=== PATIENT | female | born 1990 | race Caucasian/White ===

== ENCOUNTER 2017-12-05 12:51 | Emergency (ER) | END 2017-12-05 17:44 | disposition home or self-care (01) ==

== ENCOUNTER 2018-01-08 10:11 | Emergency (ER) | END 2018-01-08 10:58 | disposition left against medical advice (07) ==

== ENCOUNTER → 2018-01-08 | Outpatient (CLI) | END | disposition home or self-care (01) ==

== ENCOUNTER 2018-05-05 11:14 | Outpatient (CLI) | payer MEDICAID ==
[~2018-05-05] VITALS: Ht 162.6 cm; Wt 68.7 kg
[~2018-05-05 11:14] MED LIST: ONDA4TAB13 PO
[2018-05-05] MEDS ORDERED: PNV11TAB PO (11:50)
[2018-05-05] MEDS ORDERED: FOLI0.4T2 PO (11:50)
[2018-05-05 11:51] VITALS: BP 110/59; PULSE 93; RESP 18; Ht 162.6 cm; Wt 68.7 kg
--- NOTE | 2018-05-05 13:32 | PN ---
Triage Information Date/Time 05/13/2018 Reason for visit: Patient is here for blurred vision and dizziness for a few hours, patient was sent in from clinic for evaluation Weeks of Gestation 34+ weeks /Para 3 para 2 Diabetes: none Hypertention: none Additional information Patient was complicated by twin with a demise of 1 of the twins at 17 weeks of gestation Objective Vital Signs Date Temp Pulse Resp B/P (MAP) Pulse Ox O2 O2 Flow FiO2 Time Delivery Rate 05/05/18 98.4 93 18 110/59 11:51 (76) Heart Rate: 140's Heart Rate Comments Reactive Contractions: None Exam Deferred and patient did not have any contractions Results/Medications Result Diagram: 05/05/18 1158 05/05/18 1158 Results 24 hrs Laboratory Tests Test 05/05/18 08:05 05/05/18 11:58 Urine Color [place]WRENCE Urine Clarity CLOUDY A Urine pH 7.0 Urine Specific [place] 1.021 Urine Ketones NEGATIVE Urine Nitrite NEGATIVE Urine Bilirubin NEGATIVE Urine Urobilinogen 1+ H Urine Leukocyte Esterase NEGATIVE Urine Microscopic RBC 10 H Urine Microscopic WBC 7 H Urine Squamous Epithelial Cells FEW Urine Bacteria FEW A Urine Mucus MANY A Urine Hemoglobin NEGATIVE Urine Glucose NEGATIVE Urine Total Protein 2+ H White Blood Count 6.3 Red Blood Count 4.04 L Hemoglobin 11.8 L Hematocrit 35.6 L Mean Corpuscular Volume 88.1 Mean Corpuscular Hemoglobin 29.2 Mean Corpuscular Hemoglobin Concent 33.1 Red Cell Distribution Width 14.9 H Platelet Count 198 Mean Platelet Volume 9.0 Immature Granulocytes % 0.600 H Neutrophils % 71.9 Lymphocytes % 17.0 Monocytes % 8.4 Eosinophils % 1.6 Basophils % 0.5 Nucleated Red Blood Cells % 0.0 Immature Granulocytes # 0.040 H Neutrophils # 4.6 Lymphocytes # 1.1 Monocytes # 0.5 Eosinophils # 0.1 Basophils # 0.0 Nucleated Red Blood Cells # 0.0 Prothrombin Time 12.8 Prothrombin Time Ratio 1.0 INR International Normalized Ratio 0.95 Activated Partial Thromboplast Time 24.7 Fibrinogen 468.0 H Sodium Level 137 Potassium Level 4.7 Chloride Level 105 Carbon Dioxide Level 25 Anion Gap 7 Blood Urea Nitrogen 7 Creatinine 0.59 Est Glomerular Filtrat Rate mL/min > 60 Glucose Level 69 L Uric Acid 4.1 Calcium Level 9.4 Total Bilirubin 0.0 L Direct Bilirubin 0.00 Indirect Bilirubin 0.0 Aspartate Amino Transf (AST/SGOT) 19 Alanine Aminotransferase (ALT/SGPT) 13 Alkaline Phosphatase 211 H Total Protein 6.9 Albumin 3.7 Globulin 3.20 Albumin/Globulin Ratio 1.15 Imaging Results Normal biophysical profile. Disposition: Discharge Assessment/Plan All labs and ultrasounds are normal Aside from symptoms patient is not complaining of any other problems We will follow patient as outpatient CLIVE SPEARS MD May 05, 2018 13:32
== END 2018-05-05 13:55 | disposition home or self-care (01) ==
LOC: L-D 11:14 → OBT 11:14
PROVIDERS: ATTEND Obstetrics & Gynecology
DX: O26.893 Other specified pregnancy related conditions, third trimester (principal); Z3A.34 34 weeks gestation of pregnancy; R42 Dizziness and giddiness; H53.8 Other visual disturbances
CPT/HCPCS: 76818; 80053; 81001; 84560; 85025; 85384; 85610; 85730; Z7500; G0463

== ENCOUNTER 2018-06-07 09:00 | Inpatient (IN) | payer MEDICAID ==
[~2018-06-07] VITALS: Ht 165.1 cm; Wt 71.3 kg
[~2018-06-07 09:00] MED LIST changes: +FOLI0.4T2 PO; +PNV11TAB PO
[2018-06-07 10:40] VITALS: Ht 165.1 cm; Wt 71.3 kg
[2018-06-07] MEDS ORDERED: METHYLERGONOVINE 0.2 MG INJ IM PRN (11:00)
[2018-06-07] MEDS ORDERED: OXYTOCIN 30 UNITS/LR 500 ML IV PRN (11:00)
[2018-06-07] MEDS ORDERED: MINERAL OIL LIGHT 10 ML VIAL TOP ONE (11:00)
[2018-06-07] MEDS ORDERED: LIDOCAINE 1% (MPF) 30 ML INJ INJ PRN (11:00)
[2018-06-07] MEDS ORDERED: IBUPROFEN 600 MG TAB PO PRN (11:00)
[2018-06-07] MEDS ORDERED: CARBOPROST 250 MCG INJ IM PRN (11:00)
[2018-06-07] MEDS ORDERED: MISOPROSTOL 200 MCG TAB PR PRN (11:00)
[2018-06-07] MEDS ORDERED: OXYTOCIN 30 UNITS/LR 500 ML IV SCH ×2 (11:00→19:00)
[2018-06-07] MEDS ORDERED: BUTORPHANOL 2 MG INJ IV PRN (11:00)
[2018-06-07] MEDS: LACTATED RINGER'S 1,000 ML IV SCH ×2 (12:06→16:05)
[2018-06-07] MEDS: MISOPROSTOL 50 MCG CAPSULE PO SCH ×3 (13:11→21:00)
--- NOTE | 2018-06-07 18:47 | HP ---
Date/Time of Note Date/Time of Note DATE: 06/07/18 TIME: 18:44 OB - History Hx of Present Free Text/Dictation 27-year-old female 3 para 2 at 39+ weeks admitted for induction of labor Patient had twin gestation in the beginning of demise of 1 of the twins at 17 weeks Was constantly being monitored by antepartum testing unit Estimated Due Date: Jun 12, 2018 : 3 Para: 2 Care: Good Care Ultrasounds: Normal mid trimester US Obstetrical Complications: Other (Twin with demise of first or second twin at 17 weeks) Medical Complications: None Past Family/Social History * Past Medical, Surgical, Family and Obstetric Histories reviewed from chart. Blood Type: A+ Rubella: immune RPR/VDRL: Negative GBS Status: Negative HBsAG: Negative OB Admission Exam Vital Signs Vital Signs See nurse's notes Physical Exam HEENT: WNL Heart: Rhythm Normal Lungs: Clear, Equal Abdomen: WNL Extremities: Normal Reflexes: Normal Cervical Dilatation: Fingertip Effacement: 0% Station: -3 Membranes: Intact Heart Rate: 140's Accelerations: Accelerations Present Decelerations: No Decelerations Varibility: Marked Contractions on Admission: None Last 72 hours Lab Results CBC & BMP 06/07/18 11:30 OB Assessment/Plan Reason for admission: induction of labor Other Assessment: Term gestation demise of his second twin at 17 weeks Other plan: Start induction using Cytotec CLIVE SPEARS MD Jun 07, 2018 18:47
[2018-06-08] MEDS: LACTATED RINGER'S 1,000 ML IV SCH ×2 (00:18→03:07)
[2018-06-08] MEDS: MISOPROSTOL 50 MCG CAPSULE PO SCH ×3 (01:00→09:00)
--- NOTE | 2018-06-08 02:56 | PREAC ---
Date/Time of Note Date/Time of Note DATE: 06/08/18 TIME: 02:55 Anesthesia Eval and Record Evaluation Time Pre-Procedure Interview DATE: 06/08/18 TIME: 02:55 Age 27 Sex female NPO: 8 hrs Preoperative diagnosis labor pain Planned procedure labor epidural Past Medical History Past Medical History: None Surgery & Anesthesia Issues No known issue Meds Anticoagulation: No Beta Rachael within 24 hr: No Reason Beta Rachael not given: Pt. not on B-Rachael Active Scripts Ondansetron Hcl* (Zofran*) 4 Mg Tab, 4 MG PO Q4H PRN for NAUSEA AND OR VOMITING, #15 TAB Prov:YOLANDA REDDGENESIS Greenberg 12/05/17 Reported Medications Folic Acid* (Folic Acid*) 0.4 Mg Tablet, 0.4 MG PO DAILY, TAB 05/05/18 [id number] ( 19) 1 Each Tablet, 1 TAB PO DAILY, TAB 05/05/18 Current Medications Lactated Ringer's 1,000 ml @ 125 mls/hr Q8H IV Last administered on 06/08/18at 00:18; Admin Dose 125 MLS/HR; Start 06/07/18 at 10:34 Butorphanol Tartrate (Stadol) 2 mg Q2H PRN IV .PAIN; Start 06/07/18 at 11:00 Lidocaine (Xylocaine 1% (Mpf)) 30 ml ONCE PRN INJ .EPISIOTOMY; Start 06/07/18 at 11:00 Oxytocin/Lactated Ringer's 500 ml @ 500 mls/hr ONCE POST IV ; Start 06/07/18 at 11:00 Oxytocin/Lactated Ringer's 500 ml @ 125 mls/hr POST IV ; Start 06/07/18 at 11:00 Ibuprofen (Motrin) 600 mg ONCE PRN PO .PAIN 1-5; Start 06/07/18 at 11:00 Oxytocin/Lactated Ringer's 500 ml @ 0 mls/hr ONCE PRN IV .VAGINAL BLEEDING; Start 06/07/18 at 11:00 Methylergonovine Maleate (Methergine) 0.2 mg ONCE PRN IM .VAGINAL BLEEDING; Start 06/07/18 at 11:00 Carboprost Tromethamine (Hemabate) 250 mcg ONCE PRN IM .VAGINAL BLEEDING; Start 06/07/18 at 11:00 Misoprostol (Cytotec) 1,000 mcg ONCE PRN LA .VAGINAL BLEEDING; Start 06/07/18 at 11:00 Misoprostol (Cytotec 50 Mcg Capsule) 50 mcg Q4 PO Last administered on 06/07/18at 13:11; Admin Dose 50 MCG; Start 06/07/18 at 13:00 Meds reviewed: Yes Allergies Coded Allergies: No Known Allergy (Unverified , 12/05/17) Allergies Reviewed: Yes Labs/Studies Labs Reviewed: Reviewed by anesthesiologist Result Diagram: 06/07/18 1130 Laboratory Tests 06/07/18 11:30 Blood Bank Test 06/07/18 11:30 Antibody Screen NEGATIVE Blood Type A POSITIVE Rh Immune Globulin Candidate NO test: Positive Pre-procedure Exam Airway: Adequate mouth opening, Adequate thyromental dist Mallampati: Mallampati III Teeth: Normal Lung: Normal Heart: Normal ASA Physical Status ASA physical status: 2 Emergency: None Planned Anesthetic Neuraxial: Epidural Planned Pain Management Epidural, Parenteral pain med, Other neuraxial med Pre-operative Attestations Prior to commencing anesthesia and surgery, the patient was re-evaluated, there was verification of: *The patient's identity *The results of appropriate recent lab work and preoperative vital signs *The above evaluation not changing prior to induction *Anesthetic plan, risk benefits, alternative and complications discussed with patient/family; questions answered; patient/family understands, accepts and wishes to proceed. MINOR HOWARD MD Jun 08, 2018 02:56
[2018-06-08] MEDS ORDERED: FENTAnyl 2MCG/ML-ROPIV 0.2% 100 ML BAG EPI SCH (03:00)
[2018-06-08] MEDS ORDERED: ZOLPIDEM 5 MG TAB PO PRN ×2 (03:00→11:30)
[2018-06-08] MEDS ORDERED: ONDANSETRON 4 MG INJ IV PRN (03:00)
[2018-06-08] MEDS ORDERED: KETOROLAC 30 MG INJ IV PRN (03:00)
[2018-06-08] MEDS ORDERED: NALOXONE (0.4 MG/ML) INJ IV PRN (03:00)
[2018-06-08] MEDS ORDERED: HYDROmorphONE 0.5 MG/0.5 ML SYG IV PRN ×2 (03:00)
[2018-06-08] MEDS ORDERED: DIPHENHYDRAMINE 50 MG INJ IV PRN (03:00)
[2018-06-08] MEDS: OXYTOCIN 30 UNITS/LR 500 ML IV SCH ×2 (07:40→07:49)
[2018-06-08] MEDS ORDERED: KETOROLAC 30 MG INJ IV STA (07:44)
--- NOTE | 2018-06-08 07:44 | LDN ---
Date/Time of Note Date/Time of Note DATE: 06/08/18 TIME: 07:42 Delivery Summary Normal spontaneous vaginal delivery of a viable over intact perineum Weeks of Gestation 39 weeks plus Placenta Delivered: Spontaneously, Intact & Complete Meconium: none Episiotomy: No Perineal laceration: 1 Laceration repair: First-degree perineal laceration was repaired in layers using 2-0 Vicryl on a CT1 needle on per layers and 2-0 chromic on a small half needle and superficial layer Anesthesia type: Epidural Estimated blood loss: 200 Sponge & Needle done & correct: Yes All needle counts correct: Yes Any foreign bodies felt in the: No Infant Delivery Information Sex Infant Sex: male Apgars 1 Minute: 8 5 Minute: 9 Suctioning Nose & mouth suctioned at shawn: Yes Delee suction performed: No Umbilical Cord Umbilical cord with: 3 Vessels Cord presentations: no nuchal cord Cord Blood was obtained: Yes Mother & Baby Disposition Disposition Mom & Baby to Maternity; Good: Yes (Mother and baby were recovered in good condition) Mom transferred to: Other (Maternity) Baby to NICU: No CLIVE SPEARS MD Jun 08, 2018 07:44
[2018-06-08 11:05] VITALS: BP 101/56; PULSE 82; RESP 18
[2018-06-08] MEDS ORDERED: MISOPROSTOL 200 MCG TAB PR PRN (11:30)
[2018-06-08] MEDS ORDERED: DIBUCAINE 1% 30 GM OINT TOP PRN (11:30)
[2018-06-08] MEDS ORDERED: BENZOCAINE 20% 56 ML SPRAY TOP PRN (11:30)
[2018-06-08] MEDS ORDERED: WITCH HAZEL/GLYCERIN PAD PR PRN (11:30)
[2018-06-08] MEDS ORDERED: HYDROCODONE/APAP (5/325) TAB PO PRN ×2 (11:30)
[2018-06-08] MEDS ORDERED: LANOLIN HPA 1 PKT TOP PRN (11:30)
[2018-06-08] MEDS ORDERED: OXYTOCIN 30 UNITS/LR 500 ML IV PRN (11:30)
[2018-06-08] MEDS ORDERED: CARBOPROST 250 MCG INJ IM PRN (11:30)
[2018-06-08] MEDS ORDERED: METHYLERGONOVINE 0.2 MG INJ IM PRN (11:30)
[2018-06-08] MEDS: IBUPROFEN 600 MG TAB PO SCH ×2 (11:48→18:21)
[2018-06-08] MEDS: LACTATED RINGER'S 1,000 ML IV* SCH ×2 (13:00→13:01)
[2018-06-08 15:00] VITALS: BP 101/57; PULSE 84; RESP 20
[2018-06-08] MEDS: CEPHALEXIN 500 MG CAP PO SCH (18:21)
[2018-06-08 20:00] VITALS: BP 101/56; PULSE 70; RESP 18
[2018-06-08] MEDS: SENNA/DOCUSATE NA (8.6MG/50MG) TAB PO SCH (21:14)
[2018-06-08] MEDS: MAGNESIUM HYDROXIDE 30ML CUP PO SCH (21:14)
[2018-06-09] MEDS: CEPHALEXIN 500 MG CAP PO SCH ×5 (00:03→23:27)
[2018-06-09] MEDS: IBUPROFEN 600 MG TAB PO SCH ×5 (00:04→23:27)
[2018-06-09 04:10] VITALS: BP 98/56; PULSE 85; RESP 18
[2018-06-09 08:00] VITALS: BP 110/60; PULSE 80; RESP 18
[2018-06-09] MEDS: MAGNESIUM HYDROXIDE 30ML CUP PO SCH ×2 (09:00→21:18)
--- NOTE | 2018-06-09 09:10 | PAC ---
Date/Time of Note Date/Time of Note DATE: 06/09/18 TIME: 09:10 Post-Anesthesia Notes Post-Anesthesia Note Last documented vital signs Vital Signs Date Temp Pulse Resp B/P (MAP) Pulse Ox O2 O2 Flow FiO2 Time Delivery Rate 06/09/18 98.3 85 18 98/56 (70) Room Air 04:10 Activity: WNL Respiratory function: WNL Cardiovascular function: WNL Mental status: Baseline Pain reasonably controlled: Yes Hydration appropriate: Yes Nausea/Vomiting absent: Yes MINOR HOWARD MD Jun 09, 2018 09:10
[2018-06-09] MEDS: SENNA/DOCUSATE NA (8.6MG/50MG) TAB PO SCH ×2 (12:19→21:18)
[2018-06-09 16:00] VITALS: BP 96/51; PULSE 77; RESP 18
--- NOTE | 2018-06-09 17:34 | DS ---
Date/Time of Note Date/Time of Note Home today or next day DATE: 06/09/18 TIME: 17:31 Obstetrical Discharge Record Final Diagnosis Final Diagnosis: Term delivered Other Final Diagnosis Status post vaginal delivery Vaginal Delivery Obstetrical Delivery: Spontaneous, Laceration, Repaired Complications Augmentation: No Induction: Yes Condition on Discharge Physical Assessment Last Vitals: See nurse's notes Voiding: Yes Bowel Movement: Yes Breast: Soft, non-tender, Filling Fundus: Firm Abdomen and Incision: Abdomen is soft present bowel sounds Fundus is firm Episiotomy: Perineum is healing well and appears clean Calf Tenderness: No Patient Condition: Good CLIVE SPEARS MD Jun 09, 2018 17:34
--- NOTE | 2018-06-09 17:39 | PD.PPDC ---
[employer] Discharge Instruction Provider Information Physician Information 27-year-old female had vaginal delivery Diagnosis [id number] Final Diagnosis: [id number] Status post vaginal delivery Condition [id number] Patient Condition: [id number] Good Diet [id number] Diet: [id number] Resume Regular Diet Activity/Restrictions [id number] Activity: [id number] Normal Activity May Shower [id number] Return to Work or School: [id number] July 26, 2018 Follow-up Follow-up with Physician: 2, 4, Week/Weeks Return to clinic for [id number] OB Instructions: [id number] Breast Tenderness Depression Comment: Pelvic rest for 6 weeks CLIVE SPEARS MD Jun 09, 2018 17:39
[2018-06-09] MEDS ORDERED: IBUP-1542 PO (17:40)
[2018-06-09 20:05] VITALS: BP 109/73; PULSE 86; RESP 18
[2018-06-10 03:34] VITALS: BP 95/60; PULSE 85; RESP 17
[2018-06-10] MEDS: IBUPROFEN 600 MG TAB PO SCH ×2 (05:30→11:48)
[2018-06-10] MEDS: CEPHALEXIN 500 MG CAP PO SCH ×2 (05:30→11:48)
[2018-06-10 08:30] VITALS: BP 109/71; PULSE 85; RESP 18
[2018-06-10] MEDS: MAGNESIUM HYDROXIDE 30ML CUP PO SCH (09:00)
[2018-06-10] MEDS ORDERED: MEASLES,MUMPS,RUBELLA VACCINE INJ SC* ONE (09:00)
[2018-06-10] MEDS ORDERED: VARICELLA VACCINE LIVE/PF 1,350 UNIT/0.5 ML ML SC* ONE (09:00)
[2018-06-10] MEDS: SENNA/DOCUSATE NA (8.6MG/50MG) TAB PO SCH (09:00)
[2018-06-10] MEDS ORDERED: DIPHTH/TET/ACEL PERTUSS (ADULT) 0.5 ML VIAL IM* ONE (09:00)
--- NOTE | 2018-06-11 15:15 | DELSUM ---
Delivery Summary A-C Datetime Report Generated by CPN: 06/11/2018 15:15 DELIVERY PERSONNEL Cot Assembler: Goran Phoebe MATERNAL INFORMATION Delivery Anesthesia: Epidural Medications in Delivery: PITOCIN 30 UNITS IN 500 ML L/R INJ IV BOLUS RATE AFTER DELIVERY Delivery QBL (ml): 200 Placenta Cultured: No LABOR SUMMARY EDC: 06/12/2018 00:00 No. Babies in Womb: 1 Attempted: No Labor Anesthesia: Epidural LABOR INFORMATION Reason for Induction: Other Onset of Labor: 06/07/2018 15:00 Complete Dilatation: 06/08/2018 07:20 Cervical Ripening Agents: Cytotec @ Oxytocin: N/A Group B Beta Strep: Negative Antibiotics # of Doses: 0 Steroids Given: None Reason Steroids Not Administered: Not Applicable MEMBRANES Membranes Rupture Method: Artificial Rupture of Membranes: 06/08/2018 07:20 Length of Rupture (hr): 0.12 Amniotic Fluid Color: Clear Amniotic Fluid Amount: Large Amniotic Fluid Odor: Normal STAGES OF LABOR Stage 1 hr: 16 Stage 1 min: 20 Stage 2 hr: 0 Stage 2 min: 7 Stage 3 hr: 0 Stage 3 min: 2 Total Time in Labor hr: 16 Total Time in Labor min: 29 VAGINAL DELIVERY Episiotomy: None Laceration Extension: First Degree Laceration Type: Perineal Laceration Repair: Yes Initial Vag Sponge Count: 10 Final Vag Sponge Count: 10 Initial Vag Sharps Count: 3 Final Vag Sharps Count: 3 Sponge Count Correct: Yes; Vaginal Sweep Performed Sharps Count Correct: Yes BABY A INFORMATION Infant Delivery Date/Time: 06/08/2018 07:27 Method of Delivery: Vaginal Born in Route : No : N/A Forceps: N/A Vacuum Extraction: N/A Shoulder Dystocia : N/A SHOULDER DYSTOCIA BABY A Delivery Date/Time: 06/08/2018 07:27 PRESENTATION/POSITION BABY A Presentation: Cephalic Cephalic Presentation: Vertex Vertex Position: Left Occipital Anterior Breech Presentation: N/A PLACENTA INFORMATION BABY A Placenta Delivery Time : 06/08/2018 07:29 Placenta Method of Delivery: Spontaneous Placenta Status: Delivered SCORES BABY A Heart Rate 1 min: >100 bpm Resp Effort 1 min: Good Cry Reflex Irritability 1 min: Cough/Sneeze/Pulls Away Muscle Tone 1 min: Active Motion Color 1 min: Body [place], Extremit Blue Resuscitation Effort 1 min: Tactile Stimulation SCORE 1 MIN: 9 Heart Rate 5 min: >100 bpm Resp Effort 5 min: Good Cry Reflex Irritability 5 min: Cough/Sneeze/Pulls Away Muscle Tone 5 min: Active Motion Color 5 min: Body [place], Extremit Blue Resuscitation Effort 5 min: Tactile Stimulation SCORE 5 MIN: 9 INFORMATION BABY A Gestational Age at Delivery: 39.2 Gestational Status: Full Term- 39- 40.6 Weeks Infant Outcome : Liveborn Condition : Stable Infant Sex: Male IDENTIFICATION/MEDS BABY A ID Band Number: [id number] ID Band Location: Right Leg; Left Arm Sensor Applied: Yes Sensor Number: [id number] Sensor Location : Cord Clamp Vitamin K Given : Left Thigh Erythromycin Given: Not Given WEIGHT/LENGTH BABY A Infant Birthweight (gm): 3195 Infant Weight (lb): 7 Infant Weight (oz): 1 Infant Length (in): 20.00 Infant Length (cm): 50.80 CORD INFORMATION BABY A No. Cord Vessels: 3 Nuchal Cord : N/A Nuchal Cord- Other: 0 True Knot: 0 Cord Blood Taken: Yes Banking/Donate Info: no Suction: Mouth; Nose ASSESSMENT BABY A Complications: None Physical Findings at Delivery: Within Normal Limits Infant Respirations: Appears Normal Infant Care By: reba rnc Transferred To: Remains with Mother
== END 2018-06-10 15:15 | disposition home or self-care (01) | DRG 807 ==
LOC: L-D 09:45 → PP1 06-08 14:55
PROVIDERS: ADMIT Obstetrics & Gynecology; ATTEND Obstetrics & Gynecology
PROC: 10E0XZZ Delivery of Products of Conception, External Approach (ICD-10-PCS; principal; 2018-06-08)
PROC: 0HQ9XZZ Repair Perineum Skin, External Approach (ICD-10-PCS; 2018-06-08)
DX: O70.0 First degree perineal laceration during delivery (principal); Z37.0 Single live birth; Z3A.39 39 weeks gestation of pregnancy
CPT/HCPCS: 62319; 76815; 85025; 85610; 85730; 86592; 86850; 86900; 86901; 87340; 88307; 90715; 90716; J1885; J2590; J3010; J7120